=== PATIENT | female | born 1950 | race Caucasian/White ===

== ENCOUNTER 2021-04-06 09:05 | Emergency (ER) | payer MEDICARE, BC ==
--- NOTE | 2021-04-06 10:17 | ED ---
General Adult HPI - General Chief complaint: Weakness Stated complaint: Covid+/antibodies Time Seen by Provider: 04/06/21 09:18 Source: patient, RN notes reviewed Mode of arrival: ambulatory Limitations: no limitations - History of Present Illness Initial comments: Patient is a pleasant 71-year-old female presenting to the emergency Department with cough and congestion. Onset of symptoms was 1 week ago. Patient did test positive a day following that. Patient would like medical antibodies. This was discussed with her primary care physician Dr. reeder prior to patient arrival. No nausea or vomiting. Patient has had mild chills. Patient has had a lot of fatigue and some mild headaches. No loss of taste or smell. - Related Data Home Medications Medication Instructions Recorded Confirmed Levothyroxine Sodium [Synthroid] 1 tab PO DAILY 01/15/14 01/15/14 trandolapriL [Mavik] 1 tab PO DAILY 01/15/14 01/15/14 Previous Rx's Medication Instructions Recorded Rivaroxaban [Xarelto] 15 mg PO BID 21 Days tab 01/15/14 Allergies Allergy/AdvReac Type Severity Reaction Status Date / Time nickel Allergy Rash/Hives Verified 04/06/21 09:17 Penicillins Allergy Unknown Verified 04/06/21 09:17 Childhood Review of Systems ROS Statement: Those systems with pertinent positive or pertinent negative responses have been documented in the HPI. ROS Other: All systems not noted in ROS Statement are negative. Constitutional: Denies: fever Eyes: Denies: eye pain ENT: Denies: ear pain Respiratory: Reports: cough. Denies: dyspnea Cardiovascular: Denies: chest pain Endocrine: Reports: fatigue Gastrointestinal: Denies: abdominal pain Genitourinary: Denies: dysuria Skin: Denies: rash Neurological: Reports: headache. Denies: weakness Past Medical History Past Medical History: Hypertension, Thyroid Disorder Additional Past Medical History / Comment(s): PULM EMBOLUS, PSORIASIS History of Any Multi-Drug Resistant Organisms: None Reported Past Surgical History: Appendectomy Past Psychological History: No Psychological Hx Reported Smoking Status: Former smoker Past Alcohol Use History: Rare Past Drug Use History: None Reported General Exam Limitations: no limitations General appearance: alert, in no apparent distress Head exam: Present: normocephalic Eye exam: Present: normal appearance Neck exam: Present: normal inspection Respiratory exam: Present: normal lung sounds bilaterally. Absent: respiratory distress, accessory muscle use Cardiovascular Exam: Present: regular rate, normal rhythm GI/Abdominal exam: Present: soft. Absent: tenderness Extremities exam: Present: normal inspection Neurological exam: Present: alert Psychiatric exam: Present: normal affect, normal mood Skin exam: Present: normal color Course Vital Signs 04/06/21 09:12 Temperature 98 F Pulse Rate 83 Respiratory 18 Rate Blood Pressure 128/83 O2 Sat by Pulse 94 L Oximetry Medical Decision Making - Medical Decision Making Patient will receive infusion of monoclonal antibodies - Lab Data Lab Results 04/06/21 Range/Units 09:20 Coronavirus (PCR) Detected A (Not Detectd) Disposition Clinical Impression: COVID-19 Disposition: HOME SELF-CARE Condition: Stable Instructions (If sedation given, give patient instructions): Coronavirus Disease 2019 (COVID-19) Additional Instructions: Please do follow-up with your primary care physician in the next couple days for recheck. Continue to quarantiene per CDC guidelines. [id number] vitamin C, vitamin D, and zinc. [id number] Tylenol as needed. Return for difficulty breathing, not tolerating fluids, worsening symptoms or other concerns. Is patient prescribed a controlled substance at d/c from ED?: No Referrals: Johanna Dugan MD [Primary Care Provider] - 1-2 days Time of Disposition: 10:17
[2021-04-06] MEDS ORDERED: ACETAMINOPHEN TAB 500 MG TAB PO STA (12:34)
[2021-04-06] MEDS ORDERED: CASIRIVIMAB (REGN10933) (EUA) 600 MG, IMDEVIMAB (REGN10987) (EUA) 600 MG in SODIUM CHLO... IVPB ONE (12:45)
[2021-04-06] MEDS ORDERED: SODIUM CHLORIDE 0.9% 50 ML IVPB ONE (12:45)
[2021-04-06 14:54] VITALS: BP 132/79; PULSE 76; RESP 18; TEMP 98
== END 2021-04-06 14:54 | disposition home or self-care (01) ==
LOC: EC 09:05
DX: U07.1 COVID-19 (principal); E07.9 Disorder of thyroid, unspecified; I10 Essential (primary) hypertension; Z87.891 Personal history of nicotine dependence; Z88.0 Allergy status to penicillin; Z79.890 Hormone replacement therapy; Z91.09 Other allergy status, other than to drugs and biological substances
CPT/HCPCS: 87635; 96365; 99284; Q0243

== ENCOUNTER → 2022-10-28 | Outpatient (CLI) | payer MEDICARE, BC ==
[2022-10-28 12:06] LABS: Partial Thromboplastin Time 24.2 sec (22.0-30.0); Prothrombin Time 10.8 sec (9.0-12.0)
[2022-10-28 12:10] LABS: Appearance,Urine Clear (Clear); Bilirubin,Urine Negative (Negative); Blood,Urine Negative (Negative); Color,Urine Yellow; Glucose,Urine (UA) Negative (Negative); Ketones,Urine Negative (Negative); Leukocyte Esterase,Urine Negative (Negative); Nitrite,Urine Negative (Negative); PH, Urine 5.5 (5.0-8.0); Protein,Urine Negative (Negative); Specific Gravity,Urine 1.023 (1.001-1.035); Urobilinogen,Urine <2.0 mg/dL (<2.0)
[2022-10-28 12:16] LABS: HCT 36.5 % (34.0-46.0); HGB 11.7 gm/dL (11.4-16.0); Hypochromasia Slight; MCH 27.6 pg (25.0-35.0); MCHC 32.1 g/dL (31.0-37.0); Mean Platelet Volume 9.1; Platelet Count 222 k/uL (150-450); RBC 4.24 m/uL (3.80-5.40); RDW 15.7 % (11.5-15.5); WBC 8.3 k/uL (3.8-10.6)
[2022-10-28 12:22] LABS: ALT 23 U/L (4-34); AST 23 U/L (14-36); African American GFR (CKD) 89 (>60 ml/min/1.73 sqM); Albumin 3.9 g/dL (3.5-5.0); Albumin/Globulin Ratio 1.5; Alkaline Phosphatase 77 U/L (38-126); Anion Gap 8 mmol/L; Blood Urea Nitrogen 27 mg/dL (7-17); Calcium 9.2 mg/dL (8.4-10.2); Carbon Dioxide 27 mmol/L (22-30); Chloride 104 mmol/L (98-107); Globulin 2.6 g/dL; Glucose 109 mg/dL (74-99); Non-African American GFR(CKD) 77 (>60 ml/min/1.73 sqM); Potassium 4.4 mmol/L (3.5-5.1); Sodium 139 mmol/L (137-145); Total Bilirubin 0.4 mg/dL (0.2-1.3); Total Protein 6.5 g/dL (6.3-8.2)
== END | disposition home or self-care (01) ==
LOC: LABPAT 10:53
PROVIDERS: ATTEND Orthopaedic Surgery
DX: Z01.812 Encounter for preprocedural laboratory examination (principal); M16.11 Unilateral primary osteoarthritis, right hip
CPT/HCPCS: 36415; 80053; 81003; 85027; 85610; 85730; 87070

== ENCOUNTER 2022-11-03 05:39 | Day surgery (SDC) | payer MEDICARE, BC ==
[~2022-11-03 05:39] MED LIST: ACETAMINOPHEN TAB 500 MG TAB PO PRN; GABAPENTIN 300 MG CAP PO PRN; MELOXICAM 7.5 MG TAB PO PRN; TRANEXAMIC 1,000 MG/100ML-NACL 1,000 MG in SALINE 1 100ML.BAG IVPB PRN
[2022-11-03] MEDS ORDERED: LIDOCAINE 1% (10MG/ML) FOR IV START INTRADERMA PRN (05:51)
[2022-11-03] MEDS ORDERED: DEXAMETHASONE SOD PHOSPHATE 4 MG/ML 1 ML VIAL IV ONE (05:51)
[2022-11-03] MEDS ORDERED: ONDANSETRON 4 MG/2 ML VIAL IVP ONE (05:51)
[2022-11-03] MEDS ORDERED: MIDAZOLAM 2 MG/2 ML VIAL IV PRN (05:51)
[2022-11-03] MEDS: LACTATED RINGERS 1,000 ML IV SCH (05:54)
[2022-11-03 06:17] LABS: Glucose,Whole Blood 158 mg/dL (70-110)
[2022-11-03] MEDS ORDERED: DEXAMETHASONE SOD PHOSPHATE 4 MG/ML 1 ML VIAL IVP ONE (06:37)
[2022-11-03] MEDS ORDERED: MIDAZOLAM 2 MG/2 ML VIAL IVP ONE (06:39)
[2022-11-03] MEDS ORDERED: fentaNYL (PF) 50 MCG/ML 2 ML AMP IVP ONE (06:39)
--- NOTE | 2022-11-03 06:47 | P.ANPRN ---
Procedure Note - Anesthesia - Nerve Block Performed Right Ankit Single Time Out Performed: Yes Date of Procedure: 11/03/22 Procedure Start Time: 06:38 Procedure Stop Time: 06:44 Location of Patient: PreOp Indication: Acute Post-Operative Pain, Requested by Surgeon Sedation Type: Sedate with meaningful contact maintained Preparation: Sterile Prep Position: Supine Needle Types: Pajunk Needle Gauge: 21 Ultrasound used to visualize needle placement: Yes Ultrasound used to observe medication spread: Yes Injectate: Other (see comment) (0.25%ropivicaine 20 ml) Blood Aspirated: No Pain Paresthesia on Injection Noted: No Resistance on Injection: Normal Image Stored and Saved: Yes Events: Uneventful and Well Tolerated
[2022-11-03] MEDS ORDERED: MIDAZOLAM 2 MG/2 ML VIAL ONE (06:57)
[2022-11-03] MEDS ORDERED: TRANEXAMIC 1,000 MG/100ML-NACL PREMIX BAG ONE (06:57)
[2022-11-03] MEDS ORDERED: ROPIVACAINE 5 MG/ML 30 ML VIAL ONE (06:57)
[2022-11-03] MEDS ORDERED: fentaNYL (PF) 50 MCG/ML 2 ML AMP ONE (06:57)
[2022-11-03] MEDS ORDERED: SUCCINYLCHOLINE CHLORIDE 200 MG/10 ML VIAL IV ONE (06:57)
[2022-11-03] MEDS ORDERED: PROPOFOL 10 MG/ML 20 ML VIAL IV ONE (06:57)
[2022-11-03] MEDS ORDERED: ceFAZolin 1,000 MG in SODIUM CHLORIDE 0.9% 1,000 ML IRRIGATION ONE (06:59)
[2022-11-03] MEDS ORDERED: HYDROmorphone 0.5 MG/0.5 ML SYRINGE IVP PRN ×4 (07:00→08:56)
[2022-11-03] MEDS ORDERED: ROPIVACAINE 5 MG/ML 30 ML VIAL MISCELLANE ONE ×2 (07:28→08:19)
--- NOTE | 2022-11-03 08:25 | P.OP ---
Date of Procedure: 11/03/22 Preoperative Diagnosis: Severe osteoarthritis right hip Postoperative Diagnosis: Severe osteoarthritis right hip Procedure(s) Performed: Right total hip arthroplasty with a direct anterior approach Implants: [employer] Polarstem standard size 1 with a collar [employer] R3, 3 hole hemispherical acetabular shell, 50 mm [employer] Reflection 6.5 mm cancellus screw, 20 mm 2 [employer] R3, XLPE 20 acetabular liner [employer] Oxinium femoral head 36 m, +0 All components were press-fit. The articulation is Oxinium on polyethylene. Anesthesia: GETA Surgeon: Nestor Richards Ux Designer #1: Rosa Melton Estimated Blood Loss (ml): 400 Pathology: none sent Condition: stable Disposition: PACU Indications for Procedure: After failure of conservative treatment we discussed the surgical and nonsurgi bryon treatment options at length. Patient wishes to proceed with a total hip arthroplasty with a direct anterior approach. Complications specific to this procedure were discussed at length, including but not limited to infection, leg length discrepancy, dislocation, nerve injury, and fracture. Covid-19 was also discussed at length with the patient, and they are aware of the current policies and procedures. The patient was given the option of delaying surgery, but they elect to proceed knowing these risks. Patient is aware of all these complications and informed consent was obtained Operative Findings: The operative findings are consistent with severe osteoarthritis of the right hip Description of Procedure: The patient was seen and evaluated in the preoperative area and the consent was reviewed. The operative site was marked with a skin marker. The patient verified the procedure and operative site. A ROMAN block was placed by anesthesia in the preoperative area. The patient was then brought to the operating room and given preoperative antibiotics intravenously. 1 g of Tranexamic acid was also given intravenously. A general anesthetic was administered by the anesthesia department. The patient was then placed on the Corry table with the bony prominences well-padded. The hip area was then prepped with a ChloraPrep solution and draped in the usual sterile fashion. A universal timeout was then performed, which confirmed the patient's name, surgical site, ALLERGIES, and procedure being performed on the consent. Next the incision site was located at 1 cm distal and 4 cm lateral to the anterior superior iliac spine. The skin and subcutaneous tissues were sharply incised. Incision was carefully dissected down to the fascia overlying the tensor fascia terrie muscle. This fascia was then incised in line with the muscle fibers. Care was taken to stay laterally in order to avoid injuring the lateral femoral cutaneous nerve. Next, using blunt finger dissection, the tensor fascia terrie muscle was dissected off its investing fascia. The muscle was then carefully retracted laterally with a cobra retractor over the lateral neck of the femur. Next, the circumflex vessels were identified and cauterized using the Aquamantis device. The anterior hip capsule was then exposed. The capsule was then opened and an inverted T fashion. The retractors were then placed intracapsularly. The retractors were maintained intracapsular throughout the procedure. The proximal femur was then visualized. Fluoroscopic x-rays were then taken in order to evaluate the preoperative leg lengths. A small amount of traction was placed on the leg. The femoral neck was then osteotomized at the appropriate level above the lesser trochanter. A small wedge of bone was then removed from the remaining femoral head. Next, using a corkscrew the femoral head was removed from the acetabulum. On gross visual inspection, the femoral head had complete loss of articular cartilage and multiple periarticular osteophytes. The femoral head was then measured. Attention was then turned to the acetabulum. The acetabulum was exposed and any remaining labrum was excised. Sequential reaming of the acetabulum was performed using fluoroscopic guidance until there was a good bed of bleeding cancellus bone. When the appropriate size was reached, a trial was then placed. The position and fit of the trial was checked with fluoroscopy. The trial was then removed. Then, using fluoroscopic guidance, the final implant was impacted at 20 of anteversion and 40 of abduction, and fully seated in the acetabulum. 2 screws were then placed in the acetabulum. Again fluoroscopy was used to check position of the screws. Next, the liner was then impacted, with a 20 elevated liner located in the anterior superior quadrant. Component locking was confirmed. Attention was then directed to the femur. With the aid of the Corry table, the femur was externally rotated to approximately 130, extended, and adducted under the opposite leg. A side hook was then placed under the proximal femur, and the side hook elevator was used to elevate the proximal femur while releasing the capsule. Retractors were then placed. A capsular release was performed, as well as a release of the conjoined tendon, which afforded excellent vis ualization of the proximal femur. Next, a box osteotome was used to lateralize the proximal femur. A merchandising execution associate was then used to locate the femoral canal. Sequential broaching was then performed with appropriate size which afforded excellent fixation in the proximal femur. A trial was then placed with appropriate head and neck, and the hip was gently reduced with the aid of the Corry table. Fluoroscopy was then used to check position of the components, as well as to evaluate the leg lengths and offset. The leg lengths and offset were measured as closely as possible to ensure stability of the hip. The hip was then gently dislocated and the trials were then removed. Final implants were then impacted and the hip was again reduced. Final fluoroscopic x-rays confirmed that the components were in anatomic position. The leg lengths and offset were measured and were found to coincide with the trial measurements. The hip was also taken through range of motion, and found to be stable. The hip was then copiously irrigated with antibiotic solution with pulsatile lavage. The hip was then irrigated with Irrisept solution. The soft tissues were then injected with a ropivacaine solution. A second dose of 1 g of Tranexamic acid was also given intravenously. The fascia was then closed with 2-0 strata fix suture. The subcutaneous tissue was closed with 3-0 Vicryl. The subcuticular tissue was closed with 3-0 strata fix suture. The skin was then closed with Exofin skin glue. After the glue and dried, and Optifoam silver impregnated dressing was applied. The patient was then transferred to the recovery room in stable condition. The media center assistant DIA [place] was required due to the complexity of surgery, and the need for skilled surgical garment assembler for positioning, draping, exposure, retraction, and closure of the wound.
--- NOTE | 2022-11-03 08:51 | FL ---
Intraoperative/procedural fluoroscopic services were provided. Total fluoroscopy time is 51 seconds w ith a total of 3 submitted images to PACS. Please see the operative/procedural note for further detai ls. DAP: 5.3750 Gycm2
[2022-11-03] MEDS ORDERED: NALOXONE 0.4 MG/ML 1 ML VIAL IV PRN (08:56)
[2022-11-03] MEDS ORDERED: ONDANSETRON 4 MG/2 ML VIAL IVP PRN (08:56)
[2022-11-03] MEDS ORDERED: MAGNESIUM HYDROXIDE 2,400 MG/30 ML CUP PO PRN (08:56)
[2022-11-03] MEDS ORDERED: HYDROcodone/APAP 7.5-325MG 1 EACH TAB PO PRN (08:57)
--- NOTE | 2022-11-03 09:22 | XR ---
EXAMINATION TYPE: XR Hip Limited RT DATE OF EXAM: 11/03/2022 CLINICAL HISTORY: Right hip pain and osteoarthritis. TECHNIQUE: Single AP portable view of right hip is obtained immediately postoperatively. COMPARISON: None. FINDINGS: Metallic hardware from right hip arthroplasty is seen and appears satisfactory in alignment and position. There is evidence of recent surgery with subcutaneous gas surrounding prosthesis note d. IMPRESSION: Metallic hardware from right hip arthroplasty is satisfactory in position.
[2022-11-03] MEDS: SODIUM CHLORIDE 0.9% 1,000 ML IV SCH (11:59)
--- NOTE | 2022-11-03 14:56 | P.CONS ---
History of Present Illness - Reason for Consult Consult date: 11/03/22 Medical management - History of Present Illness History of present illness; patient is a 72-year-old lady with past medical history significant for hypertension, hypothyroidism, psoriasis, blood clots who presented to the hospital for elective right total hip arthroplasty by orthopedic's. Patient has been dealing with this right hip pain for a few months. Patient described that right hip pain as 10 x 10 intensity, interfering with her ambulation. In outpatient settings, orthopedics evaluated the patient and recommended surgical intervention for which patient presented to the hospital yesterday. Patient underwent right total hip arthroplasty and postoperatively the medicine team was consulted. REVIEW OF SYSTEMS: CONSTITUTIONAL: No fever, no malaise, no fatigue. HEENT: No recent visual problems or hearing problems. Denied any sore throat. CARDIOVASCULAR: No chest pain, orthopnea, PND, no palpitations, no syncope. PULMONARY: No shortness of breath, no cough, no hemoptysis. GASTROINTESTINAL: No diarrhea, no nausea, no vomiting, no abdominal pain. NEUROLOGICAL: No headaches, no weakness, no numbness. HEMATOLOGICAL: Denies any bleeding or petechiae. GENITOURINARY: Denies any burning micturition, frequency, or urgency. MUSCULOSKELETAL/RHEUMATOLOGICAL: Right hip pain ENDOCRINE: Denies any polyuria or polydipsia. The rest of the 14-point review of systems is negative. PHYSICAL EXAMINATION: GENERAL: The patient is alert and oriented x3, not in any acute distress. Well developed, well nourished. HEENT: Pupils are round and equally reacting to light. EOMI. No scleral icterus. No conjunctival pallor. Normocephalic, atraumatic. No pharyngeal erythema. No thyromegaly. CARDIOVASCULAR: S1 and S2 present. No murmurs, rubs, or gallops. PULMONARY: Chest is clear to auscultation, no wheezing or crackles. ABDOMEN: Soft, nontender, nondistended, normoactive bowel sounds. No palpable organomegaly. MUSCULOSKELETAL: No joint swelling or deformity. EXTREMITIES: No cyanosis, clubbing, or pedal edema. Right hip surgical incision seen NEUROLOGICAL: Gross neurological examination did not reveal any focal deficits. SKIN: No rashes. Assessment and plan Right hip osteoarthritis status post total right hip arthroplasty History of prior PE Hypothyroidism Monitor vital signs Monitor CBC Monitor CMP Continue pain management per orthopedics Continue postop antibiotics per orthopedics Continue DVT prophylaxis per orthopedics Resume Xarelto once okay with orthopedics PT and OT evaluation DVT prophylaxis: Past Medical History Past Medical History: Deep Vein Thrombosis (DVT), Hypertension, Osteoarthritis (OA), Pulmonary Embolus (PE), Skin Disorder, Thyroid Disorder Additional Past Medical History / Comment(s): PULM EMBOLUS, DVT , PSORIASIS, rt hip back and spine arthritis possible knees, torn tendons to rt arm from fall, doing PT. systemic infection 2005 ,IV antibiotic 6-8 weeks. History of Any Multi-Drug Resistant Organisms: None Reported Past Surgical History: Appendectomy Past Anesthesia/Blood Transfusion Reactions: No Reported Reaction Smoking Status: Former smoker, Light tobacco smoker - Past Family History Father Family Medical History: Hypertension, Pulmonary Embolus Mother Family Medical History: Hypertension Additional Family Medical History / Comment(s): OA, scoliosis Medications and Allergies Home Medications Medication Instructions Recorded Confirmed Type trandolapriL [Mavik] 4 mg PO DAILY 01/15/14 11/03/22 History Levothyroxine Sodium 88 mcg PO DAILY 04/06/21 11/03/22 History Rivaroxaban [Xarelto] 20 mg PO HS 04/06/21 11/03/22 History Zinc 50 mg PO DAILY 04/06/21 11/03/22 History Meloxicam [Mobic] 15 mg PO DAILY 10/29/22 11/03/22 History Unk Prednisone Tapering 1 tab PO DIRECTED 10/29/22 11/03/22 History HYDROcodone/APAP 7.5-325MG [[place] 1 - 2 tab PO Q6H PRN #32 tab 11/03/22 Rx 7.5-325] Sennosides [Senokot] 2 tab PO DAILY PRN #60 tablet 11/03/22 Rx Allergies Allergy/AdvReac Type Severity Reaction Status Date / Time basil Allergy Rash/Hives Verified 11/03/22 06:01 nickel Allergy Rash/Hives Verified 11/03/22 06:01 Penicillins Allergy Unknown Verified 11/03/22 06:01 Childhood jalapenos Allergy Rash/Hives Uncoded 11/03/22 06:01 lavender oil Allergy Rash/Hives Uncoded 11/03/22 06:01 peppermint leaves Allergy Rash/Hives Uncoded 11/03/22 06:01 Physical Exam Vitals: Vital Signs Temp Pulse Pulse Resp BP BP Pulse Ox 11/03/22 13:55 97.6 F 55 L 18 139/69 98 11/03/22 11:47 97.8 F 48 L 16 111/56 99 11/03/22 11:15 49 L 16 94/60 100 11/03/22 11:00 48 L 18 122/46 100 11/03/22 10:37 46 L 18 116/52 100 11/03/22 10:22 48 L 18 118/55 100 11/03/22 10:07 45 L 18 103/46 100 11/03/22 09:52 47 L 18 95/53 99 11/03/22 09:37 50 L 16 105/65 98 11/03/22 09:22 50 L 16 104/48 97 11/03/22 09:07 48 L 16 112/68 98 11/03/22 08:52 97.6 F 56 L 12 122/60 96 11/03/22 06:50 59 L 16 135/64 99 11/03/22 06:00 97.5 F L 61 16 159/76 97 Intake and Output 11/02/22 11/03/22 11/03/22 22:59 06:59 14:59 Intake Total 351 350 Output Total 400 Balance 351 -50 Intake: IV 351 350 Output: Estimated Blood Loss 400 Other: Weight 103.8 kg Results Labs: Abnormal Lab Results - Last 24 Hours (Table) 11/03/22 Range/Units 06:08 POC Glucose (mg/dL) 158 H (70-110) mg/dL
[2022-11-03] MEDS: HYDROcodone/APAP 7.5-325MG 1 EACH TAB PO PRN (20:48)
[2022-11-03] MEDS ORDERED: SENNOSIDES-DOCUSATE SODIUM 1 EACH TAB PO SCH (21:00)
[2022-11-04] MEDS: SODIUM CHLORIDE 0.9% 1,000 ML IV SCH (05:26)
[2022-11-04] MEDS ORDERED: LEVOTHYROXINE 88 MCG TAB PO SCH (06:30)
--- NOTE | 2022-11-04 07:35 | P.DS ---
Providers Expected date of discharge: 11/04/22 Attending physician: Nestor Richards Consults: 11/03/22 08:56 Consult Physician Routine Consulting Provider: Mi Contreras Consult Reason/Comments: medical management Do you want consulting provider notified?: Yes Primary care physician: Johanna Dugan - Discharge Diagnosis(es) (1) Primary localized osteoarthritis of right hip Current Visit: Yes Status: Acute (2) Status post total hip replacement, right Current Visit: Yes Status: Acute Hospital Course: This is a 72-year-old female with known history of degenerative arthritis of the right hip. The patient presents for evaluation. After discussion and consideration patient elects to proceed with total hip arthroplasty with direct anterior approach. The patient is seen preoperatively by primary care physician and cleared for surgery. Patient is admitted to [facility] on 11/03/2022 for total hip arthroplasty with direct anterior approach. The procedure is performed without complication or sequelae. The patient is doing well postoperatively. Labs and vital signs are stable on day of discharge. On day of discharge patient's hip incision is healing well. There is minimal erythema. There is no drainage noted at this time. There is minimal soft tissue swelling to the hip and thigh. Patient has full foot and ankle motion without difficulty or pain. Neurovascular status to the lower extremity is intact. Patient is discharged to home in good condition. Please see med rec for accurate list of home medications. Patient Condition at Discharge: Good Plan - Discharge Summary Discharge Rx Participant: Yes New Discharge Prescriptions: New Sennosides [Senokot] 2 tab PO DAILY PRN #60 tablet PRN Reason: Constipation HYDROcodone/APAP 7.5-325MG [[place] 7.5-325] 1 - 2 tab PO Q6H PRN #32 tab PRN Reason: Pain No Action trandolapriL [Mavik] 4 mg PO DAILY Zinc 50 mg PO DAILY Meloxicam [Mobic] 15 mg PO DAILY Rivaroxaban [Xarelto] 20 mg PO HS Levothyroxine Sodium 88 mcg PO DAILY Unk Prednisone Tapering 1 tab PO DIRECTED Discharge Medication List trandolapriL [Mavik] 4 mg PO DAILY 01/15/14 [History] Levothyroxine Sodium 88 mcg PO DAILY 04/06/21 [History] Rivaroxaban [Xarelto] 20 mg PO HS 04/06/21 [History] Zinc 50 mg PO DAILY 04/06/21 [History] Meloxicam [Mobic] 15 mg PO DAILY 10/29/22 [History] Unk Prednisone Tapering 1 tab PO DIRECTED 10/29/22 [History] HYDROcodone/APAP 7.5-325MG [[place] 7.5-325] 1 - 2 tab PO Q6H PRN #32 tab 11/03/22 [Rx] Sennosides [Senokot] 2 tab PO DAILY PRN #60 tablet 11/03/22 [Rx] Follow up Appointment(s)/Referral(s): Nestor Richards DO [Doctor of Osteopathic Medicine] - 1 Week Activity/Diet/Wound Care/Special Instructions: Weightbearing as tolerated with walker. Leave Prevena wound vac in place for 7 days and follow up in the office for wound vac removal. Please resume Xarelto. Recommend use of compression stockings daily until follow up to help prevent swelling and blood clots. May remove at night before sleeping. Please follow-up with [facility] in 1 week for wound vac removal and call with any questions or concerns, . Discharge Disposition: HOME WITH HOME HEALTH SERVICES
[2022-11-04] MEDS: LACTATED RINGERS 1,000 ML IV SCH (07:39)
[2022-11-04 07:53] VITALS: BP 126/72; PULSE 61; RESP 16; TEMP 97.9
[2022-11-04 08:51] LABS: HCT 36.2 % (37.2-46.3); HGB 11.2 d/dL (12.0-15.0); MCH 26.9 pg (27.0-32.0); MCHC 30.9 d/dL (32.0-37.0); MCV 86.8 FL (80.0-97.0); Mean Platelet Volume 11.4 FL (9.5-12.2); NRBC Per 100 WBC 0 X 10*3/uL (0.00-0.01); Platelet Count 255 X 10*3/uL (140-440); RBC 4.17 X 10*6/uL (4.10-5.20); RDW 16.7 % (11.5-14.5); WBC 16.52 X 10*3/uL (4.50-10.00)
[2022-11-04] MEDS: HYDROcodone/APAP 7.5-325MG 1 EACH TAB PO PRN (09:08)
[2022-11-04 10:32] LABS: Basophils # (A) 0.03 X 10*3/uL (0.00-0.10); Basophils % (A) 0.2 %; Eosinophils # (A) 0.06 X 10*3/uL (0.04-0.35); Eosinophils % (A) 0.4 %; Lymphocytes # (A) 1.86 X 10*3/uL (0.90-5.00); Lymphocytes % (A) 11.3 %; Monocytes # (A) 2.01 X 10*3/uL (0.20-1.00); Monocytes % (A) 12.2 %; Neutrophils # (A) 12.38 X 10*3/uL (1.80-7.70); Neutrophils % (A) 74.8 %; RBC Morphology Normal (Normal)
[2022-11-04] MEDS ORDERED: RIVAROXABAN 20 MG TAB PO SCH (17:30)
--- NOTE | 2022-11-05 05:56 | P.PN ---
Subjective Progress Note Date: 11/04/22 - Reason for Consult Consult date: 11/03/22 Medical management - History of Present Illness History of present illness; patient is a 72-year-old lady with past medical history significant for hypertension, hypothyroidism, psoriasis, blood clots who presented to the hospital for elective right total hip arthroplasty by orthopedic's. Patient has been dealing with this right hip pain for a few months. Patient described that right hip pain as 10 x 10 intensity, interfering with her ambulation. In outpatient settings, orthopedics evaluated the patient and recommended surgical intervention for which patient presented to the hospital yesterday. Patient underwent right total hip arthroplasty and po stoperatively the medicine team was consulted. 11/04/2022 Patient seen and evaluated in follow-up status post right hip arthroplasty doing well plans for discharging home today. Patient instructed to continue with incentive spirometer at least 10 times every hour while awake and pain management with DVT prophylaxis per orthopedics. Patient also instructed to follow-up with primary care provider on discharge. Patient is currently afebrile with no reports of chest pain or shortness of breath noted. Patient is tolerating diet with no reports of nausea or vomiting. Patient reports to passing gas with no bowel movement as of yet. Patient is urinating with no difficulties. Review of systems: Constitutional: No reports of fatigue, fever, or chills Cardiovascular: No reports of chest pain or palpitations Respiratory: No reports of shortness of breath or cough GI: No reports of nausea, vomiting, or diarrhea : No reports of dysuria or retention Neurovascular: No reports of weakness or numbness, report some right hip discomfort All medications have been reviewed PHYSICAL EXAMINATION: GENERAL: The patient is alert and oriented x3, not in any acute distress. Well developed, well nourished. Morbidly obese HEENT: Pupils are round and equally reacting to light. EOMI. No scleral icterus. No conjunctival pallor. Normocephalic, atraumatic. No pharyngeal erythema. No thyromegaly. CARDIOVASCULAR: S1 and S2 present. No murmurs, rubs, or gallops. PULMONARY: Chest is clear to auscultation, no wheezing or crackles. ABDOMEN: Soft, nontender, nondistended, normoactive bowel sounds. No palpable organomegaly. MUSCULOSKELETAL: No joint swelling or deformity. EXTREMITIES: No cyanosis, clubbing, or pedal edema. Right hip surgical incision site is dry and intact NEUROLOGICAL: Gross neurological examination did not reveal any focal deficits. SKIN: No rashes. Assessment: Right hip osteoarthritis status post total right hip arthroplasty History of prior PE Leukocytosis, most likely reactive secondary to assessment #1 with no signs of infection Hypothyroidism Morbid obesity with BMI of 41.2 GI prophylaxis DVT prophylaxis Full code Plan: Recommend to continue with current medications and management per orthopedics and patient has been resumed on Xarelto which she takes daily All medications reviewed and resumed as appropriate Recommend outpatient follow-up with primary care provider along with continuing orthopedic follow-up as scheduled Encourage patient to continue with incentive spirometer at least 10 times every hour while awake and breathing home and continue using Recommend follow-up labs to monitor CBC and WBC in the next few days Patient is medically stable for discharge and reports will be going home today Thank you kindly for this consultation. We will continue to follow during hospitalization The impression and plan of care has been dictated by Aziza Hooper, Nurse Practitioner as directed. Dr. Guerita MD I have performed a history and examination and MDM of this patient, discussed the same with the dictator, and agree with the dictator's assessment and plan as written ,documented as a scribe. Based on total visit time, I have performed more than 50% of the visit. Objective - Vital Signs Vital signs: Vital Signs Temp 97.9 F 11/04/22 07:52 Pulse 61 11/04/22 07:52 Resp 16 11/04/22 07:52 BP 126/72 11/04/22 07:52 Pulse Ox 98 11/04/22 07:52 FiO2 Intake & Output 11/03/22 11/04/22 11/04/22 18:59 06:59 18:59 Intake Total 350 200 Output Total 400 Balance -50 200 Weight 103.8 kg Intake: IV 350 Oral 200 Output: Estimated Blood Loss 400 Other: # Voids 1 3 - Labs CBC & Chem 7: 11/04/22 05:05 Labs: Abnormal Lab Results - Last 24 Hours (Table) 11/04/22 Range/Units 05:05 WBC 16.52 H (4.50-10.00) X 10*3/uL Hgb 11.2 L (12.0-15.0) d/dL Hct 36.2 L (37.2-46.3) % MCH 26.9 L (27.0-32.0) pg MCHC 30.9 L (32.0-37.0) d/dL RDW 16.7 H (11.5-14.5) %
== END 2022-11-04 15:05 | disposition home health service (06) ==
LOC: OR 05:39 → 4SSUR 08:52 → OR 11-04 15:05
PROVIDERS: ATTEND Orthopaedic Surgery
DX: M16.11 Unilateral primary osteoarthritis, right hip (principal); M25.751 Osteophyte, right hip; G89.18 Other acute postprocedural pain; E03.9 Hypothyroidism, unspecified; I10 Essential (primary) hypertension; Z88.0 Allergy status to penicillin; Z82.49 Family history of ischemic heart disease and other diseases of the circulatory system; Z90.49 Acquired absence of other specified parts of digestive tract; Z79.890 Hormone replacement therapy; Z79.899 Other long term (current) drug therapy
CPT/HCPCS: 97161; 97165; 64447; 86900; 86901; 85025; 86850; 73501; 27130; C1776; J2250; J0330; J1100; J0690 ×2; J2405; J3010; J2795; J2704; J1170